=== PATIENT | female | born 1995 | race Caucasian/White ===

== ENCOUNTER 2016-05-13 17:49 | Emergency (ER) | payer BC ==
[~2016-05-13] VITALS: Ht 154.9 cm; Wt 54.2 kg
[~2016-05-13 17:49] MED LIST: BCPILLS PO; MULT1CHW18 PO
[2016-05-13 17:54] VITALS: TEMP 36.2; Ht 154.9 cm; Wt 54.2 kg
[2016-05-13] MEDS ORDERED: IUD'IUD INT UTER (18:06)
[2016-05-13] MEDS ORDERED: SODIUM CHLORIDE 0.9% 1000ML 1,000 ML IV STA (18:11)
[2016-05-13] MEDS ORDERED: ONDANSETRON INJ 2 MG/ML 2 ML VIAL IV STA (18:11)
--- NOTE | 2016-05-13 18:26 | DIAGNOSTIC IMAGING REPORT ---
CHEST ONE VIEW PORTABLE CLINICAL HISTORY: near syncope COMPARISON STUDY: 12/04/2012 FINDINGS: The cardiac and mediastinal contours are normal. There is no evidence of focal pulmonary consolidation. There is no evidence of failure. No pleural effusions are visualized.[ IMPRESSION: No active disease in the chest. Electronically signed by: Philippe Berry M.D. 05/13/2016 6:25 PM Dictated Date/Time: 05/13/2016 6:25 PM
[2016-05-13 18:41] LABS: BASO % 0.1 %; BASO ABS # 0.01 K/uL (0-0.2); COMPLETE YES; EOS % 0.8 %; HEMATOCRIT 38.8 % (37-47); IG% 0.2 %; LYMPH % 22.8 %; LYMPH ABS # 1.96 K/uL (1.2-3.4); MEAN CELL VOLUME 82.9 fL (80-100); MEAN CORPUSCULAR HEMOGLOBIN 28.8 pg (25-34); MEAN CORPUSCULAR HGB CONC 34.8 g/dl (32-36); MEAN PLATELET VOLUME 9.6 fL (7.4-10.4); MONO % 4.4 %; NEUT % 71.7 %; PLATELET COUNT 270 K/uL (130-400); RED BLOOD COUNT 4.68 M/uL (4.2-5.4); WHITE BLOOD COUNT 8.61 K/uL (4.8-10.8)
[2016-05-13 18:48] LABS: MANUAL MICROSCOPIC REQUIRED? NO; URINE APPEARANCE CLEAR (CLEAR); URINE BILIRUBIN NEG (NEG); URINE COLOR YELLOW; URINE NITRITE NEG (NEG); UROBILINOGEN NEG (NEG)
[2016-05-13 18:52] LABS: REVIEW REQ? NO
--- NOTE | 2016-05-13 18:59 | DIAGNOSTIC IMAGING REPORT ---
CT HEAD WITHOUT CONTRAST (CT) CLINICAL HISTORY: There is syncope, nausea, blurred vision. COMPARISON STUDY: 12/04/2012 TECHNIQUE: Axial CT of the brain is performed from the vertex to the skull base. IV contrast was not administered for this examination. CT DOSE: 821.00 mGycm FINDINGS: No intra or extra-axial mass lesions are visualized. There is no CT evidence of acute cortical infarction. There is no evidence of midline shift. There is no acute hemorrhage. No calvarial fractures are visualized. 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 There are postsurgical changes of a frontal craniotomy. There is no evidence of pathologic ventricular dilatation. There is no evidence of acute sinusitis IMPRESSION: Postsurgical changes with left frontal encephalomalacia. No acute intracranial findings Electronically signed by: Philippe Berry M.D. 05/13/2016 6:57 PM Dictated Date/Time: 05/13/2016 6:55 PM
[2016-05-13 19:07] LABS: ALT/SGPT 21 U/L (12-78); BLOOD UREA NITROGEN 11 mg/dl (7-18); BUN/CREATININE RATIO 13.9 (10-20); CALCIUM 8.9 mg/dl (8.5-10.1); CARBON DIOXIDE 27 mmol/L (21-32); CHLORIDE 103 mmol/L (98-107); CREATININE 0.76 mg/dl (0.60-1.20); GLUCOSE 86 mg/dl (70-99); POTASSIUM 3.5 mmol/L (3.5-5.1); SODIUM 138 mmol/L (136-145)
[2016-05-13 19:10] LABS: ALKALINE PHOSPHATASE 71 U/L (45-117); AST/SGOT 16 U/L (15-37)
[2016-05-13 20:03] VITALS: BP 120/63; PULSE 85; O2SAT 98
[2016-05-13 21:10] LABS: ZZUR CULT IF INDIC CLEAN CATCH NO
--- NOTE | 2016-05-14 00:40 | EMERGENCY ROOM VISIT NOTE ---
History Report prepared by Angus: Sang Marie Under the Supervision of: Dr. Casey Mohr D.O. First contact with patient: 18:02 Chief Complaint: NAUSEA Stated Complaint: NAUSEA,FAINTING,BLURRED/SPOTTY VISION, HEADACHE, Nursing Triage Summary: Pt states she was at a work out class, became nauseous and had spotty vision, sat down and "blacked out a little bit". History of Present Illness The patient is a 20 year old female who presents to the Emergency Room with complaints of a sudden near syncopal episode beginning just prior to arrival. She states she was at a workout class that she usually does not attend, and she began to experience nausea and felt like she was going to vomit. Her vision then narrowed and went spotty 25 minutes into the class while lifting barbells. The patient notes she left the class and sat down in a chair, when she began experiencing cold sweats and her vision went black. She states she does not know if she lost consciousness. The patient notes she drank water and he symptoms gradually improved. The patient denies falling during the episode. She notes she had a syncopal episode one time that occurred three years ago. The patient denies changing her eating or drinking routine. She currently still experiences nausea with today's symptoms. The patient notes a removal up an arteriovenous malformation as her only medical history. She states she has a Mirena. The patient denies a history of cancer or other medical problems. Pt denies headache, swelling of the calves, weakness or numbness in the arms or legs, change in vision, fevers, chest pain, shortness of breath, vomiting, diarrhea, pain with urination, and melena. Source of History: patient Onset: just prior to arrival Position: other (global) Quality: other (near syncope) Timing: other (sudden) Modifying Factors (Relieving): drinking (water) Associated Symptoms: + nausea Note: Associated symptoms: resolved spotty vision, resolved cold sweats. Review of Systems See HPI for pertinent positives & negatives. A total of 10 systems reviewed and were otherwise negative. Past Medical & Surgical Medical Problems: (1) Arteriovenous malformation Family History Patient reports no known family medical history. Social History Smoking Status: Never Smoker Marital Status: single Housing Status: lives with friends Occupation Status: [employer] Current/Historical Medications Scheduled Iud's ([employer]), 1 DOSE INT UTER [id number] Allergies Coded Allergies: No Known Allergies (Unverified , 05/13/16) Physical Exam Vital Signs Date Time Temp Pulse Resp B/P Pulse Ox O2 Delivery O2 Flow Rate FiO2 05/13/16 20:03 85 20 120/63 98 05/13/16 17:54 36.2 76 16 122/72 100 Room Air Physical Exam GENERAL: sitting up in bed, alert, well appearing, well nourished, no distress, non-toxic EYE EXAM: normal conjunctiva, PERRL and EOM's intact OROPHARYNX: no exudate, no erythema, lips, buccal mucosa, and tongue normal and mucous membranes are moist NECK: supple, no nuchal rigidity, no adenopathy, non-tender LUNGS: Clear to auscultation. Normal chest wall mechanics HEART: no murmurs, S1 normal and S2 normal ABDOMEN: abdomen soft, non-tender, normo-active bowel sounds, no masses, no rebound or guarding. BACK: Back is symmetrical on inspection and there is no deformity, no midline tenderness, no CVA tenderness. SKIN: no rashes and no bruising UPPER EXTREMITIES: upper extremities are grossly normal. LOWER EXTREMITIES: No pitting edema. Calves equal bilaterally. NEURO EXAM: Normal sensorium, cranial nerves II-XII intact, normal speech, no weakness of arms, no weakness of legs. No drift. Finger to nose intact. Gross sensation intact. Medical Decision & Procedures ER Provider Diagnostic Interpretation: Xray results per the radiologist and my interpretation. Other results have been interpreted by the radiologist and reviewed by me. CHEST ONE VIEW PORTABLE CLINICAL HISTORY: near syncope COMPARISON STUDY: 12/04/2012 FINDINGS: The cardiac and mediastinal contours are normal. There is no evidence of focal pulmonary consolidation. There is no evidence of failure. No pleural effusions are visualized.[ IMPRESSION: No active disease in the chest. Electronically signed by: Philippe Berry M.D. 05/13/2016 6:[address] HEAD WITHOUT CONTRAST (CT) CLINICAL HISTORY: There is syncope, nausea, blurred vision. COMPARISON STUDY: 12/04/2012 TECHNIQUE: Axial CT of the brain is performed from the vertex to the skull base. IV contrast was not administered for this examination. CT DOSE: 821.00 mGycm FINDINGS: No intra or extra-axial mass lesions are visualized. There is no CT evidence of acute cortical infarction. There is no evidence of midline shift. There is no acute hemorrhage. No calvarial fractures are visualized. 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 There are postsurgical changes of a frontal craniotomy. There is no evidence of pathologic ventricular dilatation. There is no evidence of acute sinusitis IMPRESSION: Postsurgical changes with left frontal encephalomalacia. No acute intracranial findings Electronically signed by: Philippe Berry M.D. 05/13/2016 6:57 PM Laboratory Results 05/13/16 18:29 Red Blood Count 4.68, Mean Corpuscular Volume 82.9, Mean Corpuscular Hemoglobin 28.8, Mean Corpuscular Hemoglobin Concent 34.8, Mean Platelet Volume 9.6, Neutrophils (%) (Auto) 71.7, Lymphocytes (%) (Auto) 22.8, Monocytes (%) (Auto) 4.4, Eosinophils (%) (Auto) 0.8, Basophils (%) (Auto) 0.1, Neutrophils # (Auto) 6.17, Lymphocytes # (Auto) 1.96, Monocytes # (Auto) 0.38, Eosinophils # (Auto) 0.07, Basophils # (Auto) 0.01 05/13/16 18:29 Test 05/13/16 18:20 05/13/16 18:29 Urine Color YELLOW Urine Appearance CLEAR (CLEAR) Urine pH 6.0 (4.5-7.5) Urine Specific [place] 1.020 (1.000-1.030) Urine Protein NEG (NEG) Urine Glucose (UA) NEG (NEG) Urine Ketones NEG (NEG) Urine Occult Blood NEG (NEG) Urine Nitrite NEG (NEG) Urine Bilirubin NEG (NEG) Urine Urobilinogen NEG (NEG) Urine Leukocyte Esterase NEG (NEG) Urine Test NEG (NEG) White Blood Count 8.61 K/uL (4.8-10.8) Red Blood Count 4.68 M/uL (4.2-5.4) Hemoglobin 13.5 g/dL (12.0-16.0) Hematocrit 38.8 % (37-47) Mean Corpuscular Volume 82.9 fL (80-100) Mean Corpuscular Hemoglobin 28.8 pg (25-34) Mean Corpuscular Hemoglobin Concent 34.8 g/dl (32-36) Platelet Count 270 K/uL (130-400) Mean Platelet Volume 9.6 fL (7.4-10.4) Neutrophils (%) (Auto) 71.7 % Lymphocytes (%) (Auto) 22.8 % Monocytes (%) (Auto) 4.4 % Eosinophils (%) (Auto) 0.8 % Basophils (%) (Auto) 0.1 % Neutrophils # (Auto) 6.17 K/uL (1.4-6.5) Lymphocytes # (Auto) 1.96 K/uL (1.2-3.4) Monocytes # (Auto) 0.38 K/uL (0.11-0.59) Eosinophils # (Auto) 0.07 K/uL (0-0.5) Basophils # (Auto) 0.01 K/uL (0-0.2) RDW Standard Deviation 39.2 fL (36.4-46.3) RDW Coefficient of Variation 13.0 % (11.5-14.5) Immature Granulocyte % (Auto) 0.2 % Immature Granulocyte # (Auto) 0.02 K/uL (0.00-0.02) Anion Gap 8.0 mmol/L (3-11) Est Creatinine Clear Calc Drug Dose 88.3 ml/min Estimated GFR () 130.0 Estimated GFR (Non- 112.1 BUN/Creatinine Ratio 13.9 (10-20) Calcium Level 8.9 mg/dl (8.5-10.1) Total Bilirubin 0.3 mg/dl (0.2-1) Direct Bilirubin < 0.1 mg/dl (0-0.2) Aspartate Amino Transf (AST/SGOT) 16 U/L (15-37) Alanine Aminotransferase (ALT/SGPT) 21 U/L (12-78) Alkaline Phosphatase 71 U/L (45-117) Total Protein 7.9 gm/dl (6.4-8.2) Albumin 4.2 gm/dl (3.4-5.0) Lipase 117 U/L (73-393) Laboratory results per my review. Medications Administered Medications (Trade) Dose Ordered Sig/Taqueria Route Start Time Stop Time Status Last Admin Dose Admin Sodium Chloride (Nss 1000ml) 1,000 ml @ 999 mls/hr Q1H1M STAT IV 3/22/17 18:11 05/13/16 19:11 DC 05/13/16 18:36 999 MLS/HR ECG Indication: syncope Rate (beats per minute): 69 Rhythm: sinus rhythm Findings: other (Normal axis. J point elevation throughout the inferior and laterals. Normal intervals.) ED Course ED COURSE: Vital signs were reviewed and showed normal signs. The patients medical record was reviewed The above diagnostic studies were performed and reviewed. ED treatments and interventions as stated above. 1804: The patient was evaluated in room A10. A complete history and physical examination was performed. 1810: Ordered Zofran Inj 4 mg IV, Sodium Chloride 1,000 ml @ 999 mls/hr IV. 1944: Upon reevaluation, the patient is doing well.I discussed my findings with the patient and her mother over speakerphone and they understand and agree with the treatment plan. All questions were answered. I stressed the importance of no return to any physical activity until cleared by [facility] or PCP. Based on the patients age, coexisting illnesses, exam and lab findings the decision to treat as an outpatient was made. The patient remained stable while under my care. The patient appeared well at the time of discharge. Medical Decision Differential diagnosis includes etiologies such as vasovagal event, infection, hypoglycemia, electrolyte abnormalities, cardiac sources, intracerebral event, toxicologic, neurologic, as well as others were entertained. Patient is a 20-year-old female with a past medical history of an AVM that presents the ER for a syncopal versus a near-syncopal episode. She was working out at the gym and became very nauseous and felt like she was going to vomit. Following this she sat down her vision became very narrowed she started seeing spots and he went black. She thinks that she does recall everything going on around her but she is not 100% positive. On my exam patient is completely neurologically intact. She does have some mild nausea. CT head was negative. EKG was unremarkable. There are normal intervals without signs of HCOM or brugada. Labs including CBC, BMP, LFTs, bilirubin and lipase were unremarkable. UA was negative.. He says negative. Chest x-ray was unremarkable. Patient was updated bedside. She was given a bolus normal saline and Zofran. Her nausea completely resolved. She had no abdominal pain on exam. Based on her presentation I do feel this is consistent with a vasovagal syncope. Since this occurred while working out I did instruct her not to return to any physical activity until cleared by her primary care doctor or [facility]. I also instructed her mother of these a findings. Discussed with Pt concerning signs and symptoms to watch out for. Pt was instructed to follow up with their PCP and discussed with the patient their option to return to the ED at anytime for persistent or worsening symptoms. The appropriate anticipatory guidance and out-patient management, including indications for return to the emergency department, were explained at length to the patient and understood. Impression Primary Impression: Vasovagal syncope Scribe Attestation The scribe's documentation has been prepared under my direction and personally reviewed by me in its entirety. I confirm that the note above accurately reflects all work, treatment, procedures, and medical decision making performed by me. Departure Information Dispostion Home / Self-Care Referrals [facility] (PCP) Forms HOME CARE DOCUMENTATION FORM, IMPORTANT VISIT INFORMATION Patient Instructions ED Syncope Vasovagal, My [facility] Additional Instructions Please follow up with your primary care doctor or if you are a student [facility] services with in the next 24 hours. Any worsening of your symptoms, please return to the ED immediately. This includes recurrent passing out/syncope, lightheadedness or dizziness, chest pain or shortness breath, or any other concerning signs or symptoms from your standpoint. Absolutely no return to any physical activity/exertion until you're cleared by [facility] or your primary care doctor.
== END 2016-05-13 20:06 | disposition home or self-care (01) ==
LOC: C.EDB 17:50 → C.EDA 20:06
DX: R55 Syncope and collapse (principal); R11.0 Nausea; Z97.5 Presence of (intrauterine) contraceptive device